=== PATIENT | female | born 1980 | race Caucasian/White ===

== ENCOUNTER 2022-08-27 09:28 | Inpatient (IN) | payer BC ==
[~2022-08-27] VITALS: Ht 167.6 cm; Wt 90.7 kg
[2022-08-27 10:11] LABS: CHLORIDE 101 mEq/L (98-107)
[2022-08-27 10:14] LABS: BASOPHILS % 0.3 % (0.0-2.0); EOSINOPHILS % 0.6 % (0.0-5.0); HEMOGLOBIN. 14.3 g/dL (12.0-16.0); LYMPHOCYTES % 9.4 % (20.0-50.0); MEAN CORPUSCULAR HEMOGLOBIN 32.5 pg (28.0-32.0); MEAN CORPUSCULAR VOLUME 95.3 fL (81.0-99.0); MEAN PLATELET VOLUME 8.9 fl (7.4-10.4); MONOCYTES % 7.9 % (2.0-8.0); NEUTROPHILS % 81.8 % (40.0-76.0); PLATELET 280 x1000/uL (130-400); RED BLOOD CELL COUNT 4.41 mill/uL (4.2-5.4); RED CELL DISTRIBUTION WIDTH 12.8 % (11.6-14.6)
[2022-08-27 10:16] LABS: PROTHROMBIN TIME 10.4 sec (9.6-11.0)
[2022-08-27 15:00] VITALS: BP 128/75
[2022-08-27] MEDS ORDERED: ONDANSETRON HCL 4MG/2ML INJ IV PRN (15:15)
[2022-08-27] MEDS ORDERED: HYDROCODONE/ACETAMINOPHEN 5/325MG TABLET PO PRN (15:15)
[2022-08-27] MEDS ORDERED: NALOXONE HCL 0.4MG/ML VIAL IV PRN (15:30)
[2022-08-27 15:47] LABS: CLARITY URINE CLEAR (CLEAR); COLOR URINE DARK YELLOW (YELLOW); KETONES URINE 3+ (NEGATIVE); LEUKOCYTE ESTERASE URINE TRACE (NEGATIVE); NITRITE URINE NEGATIVE (NEGATIVE); OCCULT BLOOD URINE NEGATIVE (NEGATIVE); PH URINE 6.5 (4.5-8.0); PROTEIN URINE NEGATIVE (NEGATIVE); SPECIFIC GRAVITY URINE 1.015 (1.005-1.030)
[2022-08-27 20:00] VITALS: BP 100/62
[2022-08-28] VITALS: BP 105/62
[2022-08-28 04:00] VITALS: BP 95/53
[2022-08-28 07:02] LABS: BASOPHILS % 0.3 % (0.0-2.0); EOSINOPHILS % 3.3 % (0.0-5.0); HEMATOCRIT. 38.5 % (36.0-48.0); HEMOGLOBIN. 13.5 g/dL (12.0-16.0); LYMPHOCYTES % 45.6 % (20.0-50.0); MEAN CORPUSCULAR HEMOGLOBIN 33.1 pg (28.0-32.0); MEAN CORPUSCULAR VOLUME 94.6 fL (81.0-99.0); MONOCYTES % 12.2 % (2.0-8.0); NEUTROPHILS % 38.6 % (40.0-76.0); PLATELET 249 x1000/uL (130-400); RED BLOOD CELL COUNT 4.07 mill/uL (4.2-5.4); RED CELL DISTRIBUTION WIDTH 12.7 % (11.6-14.6)
[2022-08-28 08:00] VITALS: BP 107/62
[2022-08-28 08:37] LABS: CHLORIDE 102 mEq/L (98-107)
[2022-08-28] MEDS ORDERED: POTASSIUM CHLORIDE 20MEQ TABLET SR PO NR (09:00)
[2022-08-28 12:00] VITALS: BP 109/99
[2022-08-28 16:00] VITALS: BP 127/83
[2022-08-28 20:00] VITALS: BP 93/54
[2022-08-29] VITALS: BP 112/64
[2022-08-29 04:00] VITALS: BP 96/67
[2022-08-29 08:00] VITALS: BP 101/71
[2022-08-29] MEDS ORDERED: ONDA4TAB50 MT (11:02)
[2022-08-29] MEDS ORDERED: HYDR-4001 MT (11:02)
[2022-08-29 11:52] VITALS: BP 97/69
[2022-08-29 12:00] VITALS: BP 97/69
== END 2022-08-29 14:29 | disposition home or self-care (01) | DRG 445 ==
LOC: ER 09:28 → 6EST 13:08 → EDBEDREQ 13:10 → EDBEDREQTM 13:10 → ENRESERV 13:38
PROVIDERS: ADMIT Family Medicine Adult Medicine; ATTEND Family Medicine Adult Medicine
DX: K80.62 Calculus of gallbladder and bile duct with acute cholecystitis without obstruction (principal); E87.1 Hypo-osmolality and hyponatremia; E66.9 Obesity, unspecified; R74.01 Elevation of levels of liver transaminase levels; E87.6 Hypokalemia; Z98.84 Bariatric surgery status; Z68.32 Body mass index [BMI] 32.0-32.9, adult; Z88.2 Allergy status to sulfonamides; Z71.3 Dietary counseling and surveillance
CPT/HCPCS: 36415; 74181; 76705; 80053; 81003; 85025; 93005; 99285; J2405